=== PATIENT | female | born 1975 | race African-American/Black ===

== ENCOUNTER 2022-08-17 16:21 | Emergency (ER) | payer BC, OTHER ==
[2022-08-17 16:42] VITALS: BP 134/82; PULSE 83; RESP 18; TEMP 98.5; BMI 24.7
[2022-08-17] MEDS ORDERED: LIDOCAINE 2.5%/PRILOCAINE 2.5% (5 Gram/TUBE) TP ONE (17:47)
[2022-08-17] MEDS ORDERED: LIDOCAINE 2.5%/PRILOCAINE 2.5% 30 GRAM TUBE TP ONE (17:49)
[2022-08-17 18:13] LABS: BASO % 0.8 % (0-2.0); EOS % 0.4 % (0-4.5); HEMATOCRIT 41.3 % (32.4-45.2); HEMOGLOBIN 13.3 GM/dL (10.7-15.3); LYMPH % 30.3 % (8-40); MCH 29.5 pg (25.7-33.7); MCHC 32.2 g/dl (32.0-36.0); MEAN CELL VOLUME 91.5 fl (80-96); MONO % 7.8 % (3.8-10.2); NEUT % 60.7 % (42.8-82.8); PLATELET COUNT 346 10^3/uL (134-434); RBC 4.51 M/mm3 (3.60-5.2); RDW 14.3 % (11.6-15.6); WHITE BLOOD COUNT 7.3 K/mm3 (4.0-10.0)
[2022-08-17 18:30] LABS: CHLORIDE 104 mmol/L (98-107); SODIUM 138 mmol/L (136-145)
[2022-08-17 18:33] LABS: BLOOD UREA NITROGEN 6.5 mg/dL (7-18); CO2 24 mmol/L (21-32); GLUCOSE,RANDOM 79 mg/dL (74-106); LIPASE 37 U/L (73-393)
[2022-08-17 18:35] LABS: SGOT/AST 38 U/L (15-37); SGPT/ALT 31 U/L (13-61)
[2022-08-17 18:36] LABS: CREATININE 0.9 mg/dL (0.55-1.3)
[2022-08-17 18:37] LABS: BILIRUBIN,TOTAL 0.7 mg/dL (0.2-1); TOT PROT 7.4 g/dl (6.4-8.2)
[2022-08-17 18:38] LABS: ALK PHOS 39 U/L (45-117)
[2022-08-17 18:47] LABS: ANION GAP 10 MMOL/L (8-16); POTASSIUM 6.3 mmol/L (3.5-5.1)
[2022-08-18] MEDS ORDERED: LIDOCAINE 2.5%/PRILOCAINE 2.5% 30 GRAM TUBE TP ONE (17:49)
== END 2022-08-17 19:19 | disposition home or self-care (01) ==
LOC: JER 16:21
DX: K64.4 Residual hemorrhoidal skin tags (principal); R19.7 Diarrhea, unspecified; R42 Dizziness and giddiness; R53.1 Weakness
CPT/HCPCS: 36415; 80053; 83690; 83735; 84703; 85025; 86850; 86900; 86901; 93005; 93010; 99284-25